=== PATIENT | female | born 1985 | race African-American/Black ===

== ENCOUNTER 2017-06-26 14:19 | Emergency (ER) | payer OTHER ==
[~2017-06-26] VITALS: Ht 172.7 cm; Wt 166.5 kg
--- NOTE | ~2017-06-26 | CR20 ---
[facility] A Service of [facility] & [facility] RADIOLOGY TEXT RESULTS PATIENT: RAFI SHAFFER LOCATION: CFTX : 83 UNIT #: [id number] AGE: [address]: Rain Rodríguez SEX: F ORDER DR: [id number] [facility] [address] [place], [place] [address] [id number] MR#: [id number] Acc #: [id number] NAME: RAFI SHAFFER : 1985 SEX: F STUDY DATE/TIME: 06/26/2017 14:51 UNIT: [facility] ROOM: STUDY DESCRIPTION: CR Ankle Min 3 Views Lt Attending Physician: Rain Rodríguez P.A.-C. Ordering Physician: Rain Rodríguez P.A.-C. Primary Care Physician: Dianne Samson M.D. MEDICAL IMAGING REPORT This report is preliminary unless electronic signature is present EXAM Left ankle 06/26/2017 INDICATIONS 31-year-old female with ankle pain, swelling medially, worsening symptoms 3 weeks. No known injury. TECHNIQUE Three views of the left ankle. No comparisons. FINDINGS There is global soft tissue swelling greater medially than laterally. Ankle mortise intact. No acute fracture. No subcutaneous air or retained opaque foreign body. IMPRESSION 1. Global soft tissue swelling which may reflect lower extremity edema. Cellulitis is a differential consideration. No acute fracture, no retained opaque foreign body or subcutaneous air. Dictated by... Darnell Sainz M.D. THIS IS AN ELECTRONICALLY VERIFIED REPORT Darnell Sainz M.D. at 06/26/2017 11:07 PM TED/mor TD: 06/26/2017 22:57 JOB #: [id number] MEDICAL IMAGING REPORT Page 1 of 1 COPY
[~2017-06-26 14:19] MED LIST: ALBUTEROL17 GM INH; COMBIVENT MININEB INH; DOCUSATE SODIU100 MG PO; FLEXERIL10 MG PO; GLUCOPHAGE500 M1 PO; HYDROCODON-ACE1 EAC7 PO; IBUPROFEN800 MG PO; LISINOPRIL10 MG PO; LORTAB 5/500 TA1 TA1 PO; PREDNISONE10 MG PO; SYMBICORT INH
== END 2017-06-26 15:30 | disposition home or self-care (01) ==
LOC: CFTX 14:19 → CED 14:19 → CFTX 14:58
DX: M77.52 Other enthesopathy of left foot and ankle (principal); E11.9 Type 2 diabetes mellitus without complications; I10 Essential (primary) hypertension; J45.909 Unspecified asthma, uncomplicated; E03.9 Hypothyroidism, unspecified; Z98.890 Other specified postprocedural states
CPT/HCPCS: 29540; 73610; 99283